=== PATIENT | male | born 1935 | race Caucasian/White ===

== ENCOUNTER 2016-12-26 15:53 | Emergency (ER) | payer SELFPAY ==
[~2016-12-26] VITALS: Ht 165.1 cm; Wt 79.0 kg
[2016-12-26 15:56] VITALS: Ht 165.1 cm; Wt 79.0 kg
[2016-12-26] MEDS ORDERED: morphine 2 MG INJ IV STA (19:40)
[2016-12-26] MEDS ORDERED: SOD CHLORIDE 0.9% 1,000 ML IV STA (19:40)
[2016-12-26 20:08] LABS: ADD SCAN DIFF NO
[2016-12-26 20:09] LABS: BASOPHILS % 0.6 % (0.0-2.0); EOSINOPHILS # 0.1 10^3/ul (0.0-0.5); EOSINOPHILS % 1.2 % (0.0-7.0); HEMATOCRIT 46.8 % (42.0-52.0); HEMOGLOBIN 16.3 g/dl (14.0-18.0); LYMPHOCYTES # 1.5 10^3/ul (0.8-2.9); LYMPHOCYTES % 22.6 % (15.0-51.0); MEAN CORPUSCULAR HEMOGLOBIN 30.7 pg (29.0-33.0); MEAN CORPUSCULAR HGB CONC 34.8 g/dl (32.0-37.0); MEAN CORPUSCULAR VOLUME 88.1 fl (82.0-101.0); MEAN PLATELET VOLUME 10.8 fl (7.4-10.4); MONOCYTE # 0.4 10^3/ul (0.3-0.9); MONOCYTES % 5.7 % (0.0-11.0); NEUTROPHIL # 4.7 10^3/ul (1.6-7.5); NEUTROPHILS % 69.5 % (39.0-77.0); PLATELET COUNT 245 10^3/UL (140-415); RED BLOOD COUNT 5.31 10^6/ul (4.70-6.10); RED CELL DISTRIBUTION WIDTH 12.7 % (11.5-14.5); WHITE BLOOD COUNT 6.8 10^3/ul (4.8-10.8)
[2016-12-26 20:13] LABS: ADD UMIC YES; URINE BILIRUBIN (Dip) NEGATIVE (NEGATIVE); URINE BLOOD (Dip) 3+ (NEGATIVE); URINE COLOR DK. RED (YELLOW); URINE GLUCOSE (Dip) NEGATIVE (NEGATIVE); URINE KETONES (Dip) TRACE (NEGATIVE); URINE LEUKOCYTE ESTERASE (Dip) 1+ (NEGATIVE); URINE NITRITE (Dip) POSITIVE (NEGATIVE); URINE TOTAL PROTEIN (Dip) 4+ (NEGATIVE); URINE UROBILINOGEN (Dip) 1.0 E.U./dL (0.1-1.0)
[2016-12-26 20:20] LABS: URINE RBCS >200 /HPF (0)
[2016-12-26 20:29] LABS: ALBUMIN 4.7 g/dl (3.3-4.9); ALBUMIN/GLOBULIN RATIO 1.62; BILIRUBIN,INDIRECT 0.3 mg/dl (0-1.1); BILIRUBIN,TOTAL 0.3 mg/dl (0.2-1.3); CREATININE 0.87 mg/dl (0.61-1.24); POTASSIUM 3.7 mmol/L (3.5-5.1); TOTAL PROTEIN 7.6 g/dl (6.1-8.1)
--- NOTE | 2016-12-26 20:36 | RADRPT ---
PROCEDURE: CT abdomen and pelvis without contrast. CLINICAL INDICATION: Bladder and kidney pain with hematuria TECHNIQUE: CT scan of the abdomen and pelvis without contrast was performed on a multislice CT [facility] utilizing axial imaging from the lung bases through the pubis symphysis. The patient was scann ed without intravenous contrast. Sagittal and coronal reformatted images were made. The CTDIvol is mGy and the DLP is 0.87 898.03 mGycm. One of the following 3 dose reduction techniques were used during this CT examination: automated exp osure control; adjustment of the mA and /or kV according to patient size; or use of iterative recons truciton technique. COMPARISON: None available FINDINGS: The lung bases are remarkable for left basilar discoid atelectasis and herniation of intra-abdominal fat along the left hemidiaphragmatic eventration. The visualized liver demonstrates several foci of hypodensity ranging in size from 3-7 mm in the lef t lobe of the liver. The visualized spleen, pancreas, gallbladder, and bilateral adrenal glands are normal. The visualized kidneys are nonobstructive. No evidence for hydroureteronephrosis or nephr oureterolithiasis is present. Heterogeneity is present in the left inferior pole of the kidney and recommend follow-up imaging with contrast CT or ultrasound. The visualized aorta demonstrates mild vascular calcifications without aneurysmal dilatation. The visualized bowel is nonobstructive. No evidence for diverticulosis, diverticulitis, or appendic itis is present. The appendix is normal. The presence of a bladder calculus measuring 7 mm is noted in the right bladder diverticulum which a ppears to herniate into the right inguinal canal. The visualized prostate is markedly enlarged and measures 4.8 cm AP by 5.2 cm transverse with prosta tic calcifications present. No evidence for ascites or pneumoperitoneum is present. Bilateral right greater than left fatty inguinal hernias are present with the right measuring 5 cm i n transverse dimensions and the left measuring 2.1. Partial herniation of the right sided bladder d iverticulum is again noted into the right inguinal canal. The surrounding osseous structures are remarkable for generalized osteopenia. Degenerative changes are present of the bilateral sacroiliac joints and degenerative spondylosis of the imaged spine. Gr ijeoma 1 spondylolisthesis of L5 and S1 is present with bilateral L5 spondylolysis.. IMPRESSION: 1. 7 mm bladder calculus with in the right bladder diverticulum partially herniating into the right inguinal canal. 2. No evidence for hydroureteronephrosis or Nephroureterolithiasis 3. Left basilar discoid atelectasis and herniation of intra-abdominal fat through a left hemidiaphr agmatic eventration. 4. Multiple hypodensities within the liver ranging in size from 3-7 mm, likely cysts. However danyelle tional imaging with ultrasound or CT with contrast would better evaluate. 5. Marked prostatic enlargement measuring 4.8 cm AP by 5.2 cm in transverse dimensions 6. Mild atherosclerotic vascular disease RPTAT: HDC .Anne Pritchard MD, MD Date Time Electronically viewed and signed by .Anne Pritchard MD, on 12/26/2016 20:36 .C/
[2016-12-26 21:28] VITALS: TEMP 97.7
[2016-12-26] MEDS ORDERED: CEFEPIME 1GM/50 ML (PMX) 50 ML IVPB ONE (22:00)
[2016-12-26] MEDS ORDERED: PHEN-537 PO (23:11)
[2016-12-26] MEDS ORDERED: CIPR500T4 PO (23:11)
--- NOTE | 2016-12-26 23:20 | ERD ---
ER Documentation Chief Complaint Date/Time DATE: 12/26/16 TIME: 23:17 Chief Complaint Complains of urinating blood since today HPI Comes emergency room for hematuria that began this morning as well as dysuria. He has a burning sensation when he pees. Also has red urine from having blood in it. Denies any fevers and chills. Has some suprapubic pain but denies any other pain whatsoever. Feels well. He has never had this complication before. ROS All systems reviewed and are negative except as per history of present illness. Medications Home Meds Active Scripts Ciprofloxacin Hcl* (Ciprofloxacin Hcl*) 500 Mg Tablet, 500 MG PO BID for 7 Days , TAB Prov:ESTEVAN FUENTES DO 12/26/16 Phenazopyridine Hcl* (Pyridium*) 100 Mg Tab, 100 MG PO TID Y for URINARY PAIN, # 8 TAB Prov:ESTEVAN FUENTES DO 12/26/16 Allergies Allergies: Coded Allergies: No Known Allergy (Unverified , 12/26/16) PMhx/Soc History of Surgery: Yes (prostate surgery) Anesthesia Reaction: No Hx Neurological Disorder: No Hx Respiratory Disorders: No Hx Cardiac Disorders: Yes (HTN) Hx Psychiatric Problems: No Hx Miscellaneous Medical Probl: No Hx Alcohol Use: No Hx Substance Use: No Hx Tobacco Use: No Smoking Status: Never smoker Physical Exam Vitals Vital Signs Date Time Temp Pulse Resp B/P Pulse Ox O2 Delivery O2 Flow Rate FiO2 12/26/16 21:28 97.7 65 22 121/67 98 Room Air 12/26/16 19:22 64 18 139/75 100 Room Air 12/26/16 15:56 99.4 69 20 160/77 96 Physical Exam Const: [] No distress Head: Atraumatic Eyes: Normal Conjunctiva ENT: Normal External Ears, Nose and Mouth. Neck: Full range of motion..~ No meningismus. Abd: Soft, very mild suprapubic tenderness without guarding or rebound, non distended. Normal bowel sounds Skin: No petechiae or rashes Back: No midline or flank tenderness Ext: No cyanosis, or edema Neur: Awake and alert and oriented 3, no focal deficits Psych: Normal Mood and Affect Result Diagram: 12/26/16194012/26/161940 Results 24 hrs Laboratory Tests Test 12/26/16 19:38 12/26/16 19:41 Urine Color DK. RED Urine Clarity OTHER Urine pH 6.5 Urine Specific [place] 1.020 Urine Ketones TRACE Urine Nitrite POSITIVE Urine Bilirubin NEGATIVE Urine Urobilinogen 1.0 E.U./dL Urine Leukocyte Esterase 1+ Urine Microscopic RBC >200/HPF Urine Microscopic WBC 5-10/HPF Urine Hemoglobin 3+ Urine Glucose NEGATIVE% Urine Total Protein 4+ White Blood Count 6.810^3/ul Red Blood Count 5.3110^6/ul Hemoglobin 16.3g/dl Hematocrit 46.8% Mean Corpuscular Volume 88.1fl Mean Corpuscular Hemoglobin 30.7pg Mean Corpuscular Hemoglobin Concent 34.8g/dl Red Cell Distribution Width 12.7% Platelet Count 94558^3/UL Mean Platelet Volume 10.8fl Neutrophils % 69.5% Lymphocytes % 22.6% Monocytes % 5.7% Eosinophils % 1.2% Basophils % 0.6% Nucleated Red Blood Cells % 0.0/100WBC Neutrophils # 4.710^3/ul Lymphocytes # 1.510^3/ul Monocytes # 0.410^3/ul Eosinophils # 0.110^3/ul Basophils # 0.010^3/ul Nucleated Red Blood Cells # 0.010^3/ul Sodium Level 141mmol/L Potassium Level 3.7mmol/L Chloride Level 105mmol/L Carbon Dioxide Level 25mmol/L Anion Gap 15 Blood Urea Nitrogen 15mg/dl Creatinine 0.87mg/dl Glucose Level 111mg/dl Calcium Level 9.0mg/dl Total Bilirubin 0.3mg/dl Direct Bilirubin 0.00mg/dl Indirect Bilirubin 0.3mg/dl Aspartate Amino Transf (AST/SGOT) 28IU/L Alanine Aminotransferase (ALT/SGPT) 39IU/L Alkaline Phosphatase 73IU/L Total Protein 7.6g/dl Albumin 4.7g/dl Globulin 2.90g/dl Albumin/Globulin Ratio 1.62 Lipase 92U/L Current Medications Medications (Trade) Dose Ordered Sig/Chilo Route PRN Reason Start Time Stop Time Status Last Admin Dose Admin Sodium Chloride (NS) 1,000 ml @ 1,000 mls/hr Q1H STAT IV 12/26/16 19:40 12/26/16 20:39 DC 12/26/16 19:56 Morphine Sulfate 2 mg 2 mg ONCE STAT IV 12/26/16 19:40 12/26/16 19:43 DC 12/26/16 19:56 Cefepime HCl (Maxipime 1gm/50 ml (Pmx)) 50 ml @ 100 mls/hr ONCE ONCE IVPB 12/26/16 22:00 12/26/16 22:29 DC 12/26/16 22:15 Procedures/MDM Hematuria secondary to nitrate positive UTI. Patient also has recently passed kidney stone in his bladder and a diverticular. Patient is stable in the emergency room. I did give him a gram of cefepime for initial treatment. Urine culture was taken. I am going to discharge him with instructions to follow-up with urology through a primary care doctor. Patient does not have insurance currently. I have had registration, and talked about signing up for insurance [employer]. Discharging with ciprofloxacin for 1 week and Pyridium. I printed the results of his CTA and laboratories for him. Departure Diagnosis: Primary Impression: UTI (urinary tract infection) Additional Impression: Hematuria Condition: Stable Patient Instructions: Understanding Urinary Tract Infections (UTIs), Hematuria Referrals: NOHELIA TRUJILLO MD [facility] YOU HAVE RECEIVED A MEDICAL SCREENING EXAM AND THE RESULTS INDICATE THAT YOU DO NOT HAVE A CONDITION THAT REQUIRES URGENT TREATMENT IN THE EMERGENCY DEPARTMENT. FURTHER EVALUATION AND TREATMENT OF YOUR CONDITION CAN WAIT UNTIL YOU ARE SEEN IN YOUR DOCTORS OFFICE WITHIN THE NEXT 1-2 DAYS. IT IS YOUR RESPONSIBILITY TO MAKE AN APPOINTMENT FOR FOLOW-UP CARE. IF YOU HAVE A PRIMARY DOCTOR --you should call your primary doctor and schedule an appointment IF YOU DO NOT HAVE A PRIMARY DOCTOR YOU CAN CALL OUR PHYSICIAN REFERRAL HOTLINE AT IF YOU CAN NOT AFFORD TO SEE A PHYSICIAN YOU CAN CHOSE FROM THE FOLLOWING FORMERLY [facility] [address] [facility] [address] [facility] [address] [facility] [facility] [address] [facility]. [facility] [address] [facility] [facility]. [address] Additional Instructions: Llame al doctor MAANA y brando tanya JOHANNA PARA DENTRO DE 2-3 MITCHELL.Dgale a la secretaria que nosotros le instruimos hacer esta johanna.Avise o llame si maier condicin se empeora antes de la johanna. Regresa aqui si peor o no mejor.SPECIALIST: YOU HAVE A MEDICAL CONDITION WHICH REQUIRES YOU TO SEE A SPECIALIST WITHIN THE NEXT WEEK. PLEASE FOLLOW UP WITH YOUR PRIMARY PHYSICIAN FOR REFFERAL.IF YOU DO NOT HAVE A PRIMARY CARE PHYSICIAN AND/OR YOU CAN NOT AFFORD TO SEE A PHYSICIAN THE FOLLOWING RESOURCES HAVE BEEN SUPPLIED TO YOU. IT IS YOUR RESPONSIBILITY TO BE SEEN BY THE SPECIALIST ESTEVAN FUENTES DO Dec 26, 2016 23:20
[2016-12-26 23:38] VITALS: BP 143/80; PULSE 66; RESP 18
== END 2016-12-26 23:30 | disposition home or self-care (01) ==
LOC: E/R 15:53
DX: N39.0 Urinary tract infection, site not specified (principal); I10 Essential (primary) hypertension
CPT/HCPCS: 74176; 80053; 81001; 83690; 85025; 87086; J0692; J2270; J7030; 36415; 96361; 96374; 96375